=== PATIENT | female | born 1990 | race Caucasian/White ===

== ENCOUNTER 2017-04-14 17:32 | Emergency (ER) | payer MEDICAID ==
[~2017-04-14] VITALS: Ht 165.1 cm; Wt 59.0 kg
[2017-04-14 17:49] VITALS: BP_SYST 115
--- NOTE | 2017-04-14 17:54 | NUR ---
Pt placed to ER bed 02, to randy, report given to ANASTASIA Guerrero.
--- NOTE | 2017-04-14 18:00 | NUR ---
Patient, awake,alert and oriented x 4, BIB self from home for abdominal pain. Patient states "I just started my period, then my stomach started cramping, then my right side of my stomach started to hurt since last night. I vomitted once last night" Patient complains of abdominal pain to right upper and lower quad, tender to touch, denies nausea at this time. Bowel sounds present. No other complaints/injuries per patient, none noted.
--- NOTE | 2017-04-14 18:05 | NUR ---
Dr. Woody at bedside examining patient.
[2017-04-14] MEDS ORDERED: MORPHINE 4 MG/ML INJ. SYRINGE IVP ONE (18:15)
[2017-04-14 18:32] LABS: BILIRUBIN,URINE NEGATIVE (NEGATIVE); BLOOD, URINE 3+ (NEGATIVE); CLARITY/URINE HAZY (CLEAR); COLOR,URINE YELLOW (YELLOW); GLUCOSE,URINE NEGATIVE (NEGATIVE); KETONES,URINE TRACE (NEGATIVE); LEUKOCYTE ESTERASE ,URINE NEGATIVE (NEGATIVE); NITRITE, URINE NEGATIVE (NEGATIVE); PROTEIN URINE TRACE (NEGATIVE)
[2017-04-14 18:35] LABS: CALCIUM 8.9 mg/dL (8.4-11.0); CREATININE 0.65 mg/dL (0.55-1.30); POTASSIUM 3.7 mmol/L (3.5-5.1)
[2017-04-14 18:38] LABS: BASOPHILS % (AUTO) 0.6 % (0.0-2.0); EOSINOPHILS # (AUTO) 0.1 K/uL (0.0-0.4); EOSINOPHILS % (AUTO) 2.5 % (0.0-4.0); HEMATOCRIT 36.2 % (36-48); HEMOGLOBIN 12.4 g/dL (12.0-16.0); LYMPHOCYTES # (AUTO) 1.8 K/uL (1.0-5.5); LYMPHOCYTES % (AUTO) 30.2 % (20.5-51.5); MEAN CORPUSCULAR HEMOGLOBIN 31 pg (27-31); MEAN CORPUSCULAR HGB CONC 34 % (32-36); MEAN CORPUSCULAR VOLUME 90 fL (79.0-98.0); MONOCYTES # (AUTO) 0.5 K/uL (0.0-1.0); MONOCYTES % (AUTO) 7.9 % (1.7-9.3); NEUTROPHILS # (AUTO) 3.6 K/uL (1.8-7.7); NEUTROPHILS % (AUTO) 58.8 % (40.0-70.0); PLATELET COUNT (AUTO) 202 K/uL (130-430); RED BLOOD CELL COUNT(AUTO) 4.02 MIL/uL (4.2-6.2); RED CELL DISTRIBUTION WIDTH 11.7 % (9.0-15.0)
--- NOTE | 2017-04-14 18:38 | NUR ---
Patient medicated per MD orders.
[2017-04-14 18:39] LABS: TOTAL BILIRUBIN 0.6 mg/dL (0.0-1.0)
[2017-04-14 18:43] LABS: BACTERIA,URINE FEW /HPF (None Seen); MUCUS,URINE 1+ /LPF (None Seen); RBC,URINE >100 /HPF (0-3); WBC,URINE 0-3 /HPF (0-3)
--- NOTE | 2017-04-14 18:45 | NUR ---
No signs of adverse reaction to medication noted.
--- NOTE | 2017-04-14 19:26 | NUR ---
Endorsed care to ANASTASIA Fierro. Report given at bedside.
--- NOTE | 2017-04-14 20:30 | NUR ---
BARBARA Medina at bedside examining patient.
--- NOTE | 2017-04-14 21:00 | NUR ---
U/S IN PROGRESS AT BS. TOLERATING WELL.
--- NOTE | 2017-04-14 23:05 | NUR ---
Patient given written and verbal discharge instructions and verbalizes understanding. ER MD discussed with patient the results and treatment provided. Patient in stable condition. ID arm band removed. IV catheter removed intact and dressing applied, no active bleeding. Rx of MIRALAX given. Patient educated on pain management and to follow up with PMD. Pain Scale 0/10. Opportunity for questions provided and answered.
[2017-04-14 23:08] VITALS: BP_SYST 97
== END 2017-04-14 23:08 | disposition home or self-care (01) ==
LOC: SED 17:32
DX: K59.00 Constipation, unspecified (principal); I10 Essential (primary) hypertension
CPT/HCPCS: 36415; 74176; 76856; 80053; 81000; 81025; 83690; 85025; 96374; 99285; J2270

== ENCOUNTER 2018-03-02 18:58 | Emergency (ER) | payer MEDICAID ==
[~2018-03-02] VITALS: Ht 165.1 cm; Wt 59.0 kg
[2018-03-02 19:15] VITALS: BP_SYST 126
--- NOTE | 2018-03-02 19:40 | NUR ---
Note teena in ED - 03/02/18 at 1959 by [id number] Patient to ER bed 6 to randy for evaluation. Side rails up. Report given to Lizandro OCONNOR.
--- NOTE | 2018-03-02 19:40 | NUR ---
Patient to ER bed 2 to gown for evaluation. Side rails up. Report given to Lizandro OCONNOR.
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
--- NOTE | 2018-03-02 19:50 | NUR ---
ED MD Martinez at bedside for medical evaluation.
[2018-03-02] MEDS ORDERED: CYCLOBENZAPRINE HCL 10 MG TABLET (FLEXERIL) PO ONE (20:00)
[2018-03-02] MEDS ORDERED: KETOROLAC TROMETHAMINE 30 MG VIAL IM ONE (20:00)
--- NOTE | 2018-03-02 20:40 | NUR ---
Patient reports current pain level of 2/10. ED MD Martinez made aware.
[2018-03-02 21:00] VITALS: BP_SYST 121
--- NOTE | 2018-03-02 21:00 | NUR ---
Patient given written and verbal discharge instructions and verbalizes understanding. ER MD discussed with patient the results and treatment provided. Patient in stable condition. ID arm band removed. Rx of Naproxen and Flexeril given. Patient educated on pain management and to follow up with PMD. Pain Scale. Opportunity for questions provided and answered. Medication side effect fact sheet provided.
== END 2018-03-02 21:00 | disposition home or self-care (01) ==
LOC: SED 18:58
DX: S16.1XXA Strain of muscle, fascia and tendon at neck level, initial encounter (principal); M25.531 Pain in right wrist; I10 Essential (primary) hypertension; V43.62XA Car passenger injured in collision with other type car in traffic accident, initial encounter; Y93.89 Activity, other specified; Y92.410 Unspecified street and highway as the place of occurrence of the external cause; Y99.8 Other external cause status
CPT/HCPCS: 29125; 73110; 96372; 99284; J1885

== ENCOUNTER 2018-03-04 14:27 | Emergency (ER) | payer SELFPAY ==
[~2018-03-04] VITALS: Ht 165.1 cm; Wt 59.0 kg
[2018-03-04 14:40] VITALS: BP_SYST 116
[2018-03-04] MEDS ORDERED: KETOROLAC TROMETHAMINE 30 MG VIAL IM ONE (14:45)
[2018-03-04 16:40] VITALS: BP_SYST 126
== END 2018-03-04 16:40 | disposition home or self-care (01) ==
LOC: SED 14:27
DX: S43.101A Unspecified dislocation of right acromioclavicular joint, initial encounter (principal); I10 Essential (primary) hypertension; V43.62XA Car passenger injured in collision with other type car in traffic accident, initial encounter; Y93.89 Activity, other specified; Y92.410 Unspecified street and highway as the place of occurrence of the external cause; Y99.8 Other external cause status
CPT/HCPCS: 71045; 81025; 96372; 99283; J1885

== ENCOUNTER 2018-11-05 14:57 | Emergency (ER) | payer MEDICAID, OTHER ==
[~2018-11-05] VITALS: Ht 165.1 cm; Wt 59.0 kg
[2018-11-05 15:10] VITALS: BP_SYST 124
[2018-11-05 17:15] VITALS: BP_SYST 124
== END 2018-11-05 17:15 | disposition home or self-care (01) ==
LOC: SED 14:57
DX: S93.402A Sprain of unspecified ligament of left ankle, initial encounter (principal); I10 Essential (primary) hypertension; X50.9XXA Other and unspecified overexertion or strenuous movements or postures, initial encounter; Y93.89 Activity, other specified; Y92.89 Other specified places as the place of occurrence of the external cause; Y99.8 Other external cause status
CPT/HCPCS: 99283